=== PATIENT | male | born 1975 | race Caucasian/White ===

== ENCOUNTER 2023-05-01 13:04 | Emergency (ER) | payer OTHER, SELFPAY ==
--- NOTE | 2023-05-01 13:07 | ED.GENADULT ---
HPI - General Adult General Chief complaint: Ear Stated complaint: rt ear discomfort Time Seen by Provider: 05/01/23 13:07 Source: patient Mode of arrival: ambulatory Limitations: no limitations History of Present Illness HPI narrative: 47-year-old male patient presents to clinic with right ear pain and ringing of the right ear. patient states symptoms started 2 days ago and is better today. Denies history of allergies. denies taking current medications. denies headaches, dizziness, blurred vision, runny nose, cough. reported having sneezing and runny nose yesterday but has resolved today. patient was taking pseudoephedrine last dose was this morning. states here pain it is dull and a ringing in his ear is more like a crackling and popping. denies fever, chills, neck pain, swollen lymph nodes, and malaise. Related Data Allergies Allergy/AdvReac Type Severity Reaction Status Date / Time No Known Allergies Allergy Verified 05/01/23 13:24 Review of Systems Review of Systems: CONSTITUTIONAL: Denies fever, chills, or sweats. EYES: Denies visual changes, redness, or discharge. ENT: Denies current rhinorrhea, congestion, sore throat. positive right ear otalgia with popping and crackling. CARDIOVASCULAR: Denies chest pain, palpitations, or edema. RESPIRATORY: Denies cough or dyspnea. GASTROINTESTINAL: Denies abdominal pain, nausea, vomiting, or diarrhea. GENITOURINARY: Denies dysuria or hematuria. SKIN: Denies rash or itching. MUSCULOSKELETAL: Denies back pain, joint pain, or myalgia. NEUROLOGIC: Denies headache, numbness, or weakness. PSYCHIATRIC: Denies anxiety or depression. PMFSH Past Medical History Medical History (Updated 05/01/23 @ 13:35 by MASON Christiansen) Cerebral palsy Surgical History Surgical History (Updated 05/01/23 @ 13:16 by MASON Christiansen) H/O eye surgery Comments At the time of my signature I agree with nursing past medical history, surgical, social, and family history. There is no relevant family history pertinent to the presenting complaint. Exam Narrative: GENERAL: Well-appearing, well-nourished, and in no acute distress. HEAD: Normocephalic, atraumatic. EYES: PERRLA and EOMI. ENT: Nares clear, no rhinorrhea or epistaxis. Mucous membranes moist. tympanic membranes are pearly tirado with effusion of angie coloring, no edema or erythema. no exudate in the ear canal and no signs of foreign body, free of cerumen. NECK: Supple. No lymphadenopathy CHEST: Clear to auscultation. No respiratory distress. HEART: Regular rate and rhythm. No murmur heard. Normal peripheral pulses. ABDOMEN: Soft, nontender, nondistended, normal active bowel sounds. EXTREMITIES: Normal range of motion. No edema. SKIN: Warm, dry, no rash. NEURO: No focal deficits. Alert and oriented x3. Course Course Level of Care: Express Care Visit Vital Signs Vital signs: Vital Signs Temperature 36.5 C 05/01/23 13:20 Pulse Rate 84 05/01/23 13:20 Respiratory Rate 16 05/01/23 13:20 Blood Pressure 152/95 H 05/01/23 13:20 Pulse Oximetry 100 05/01/23 13:20 Oxygen Delivery Room Air 05/01/23 13:20 Temperature 36.5 C 05/01/23 13:20 Pulse Rate 84 05/01/23 13:20 Respiratory Rate 16 05/01/23 13:20 Blood Pressure 152/95 H 05/01/23 13:20 Pulse Oximetry 100 05/01/23 13:20 Oxygen Delivery Room Air 05/01/23 13:20 vital signs reviewed. The patient has been informed that they may have pre-hypertension or Hypertension based on a BP reading in the department. I recommend that the patient call the primary care provider listed on their discharge instructions or a physician of their choice this week to arrange follow up for further evaluation of possible pre-hypertension or Hypertension. Medical Decision Making MDM Narrative Medical decision making narrative: patient's symptoms of itching runny nose and crackling of the ears indicate prescriptions for cetirizine and Flonase. P
[2023-05-01 13:20] VITALS: BP 152/95; PULSE 84; RESP 16; TEMP 36.5; O2SAT 100
== END 2023-05-01 13:36 | disposition home or self-care (01) ==
PROVIDERS: Emergency Provider Nurse Practitioner Family
DX: H74.8X3 Other specified disorders of middle ear and mastoid, bilateral (principal)
CPT/HCPCS: 99213; G0463